=== PATIENT | female | born 1965 | race Two or more races ===

== ENCOUNTER 2024-08-19 19:46 | Inpatient (IN) | payer MEDICAID, OTHER ==
[~2024-08-19] VITALS: Ht 149.9 cm; Wt 59.8 kg
--- NOTE | 2024-08-19 20:44 | ED.PDOC ---
HPI Comments HPI: Poor Historian. 59 y.o female presents to the ED for a chief complaint of midsternal chest pain that started 3 days ago. Patient report pain is intermittent, sharp, and is associated with occasional headaches and dizziness. Patient reports she took all her medications today and is complaint with taking them daily. Patient denies any other symptoms or pain. VITALS: Temp: 98.5 F BP: 114/74 HR: 67 RR: 18 SPO2: 96% RA Past medical history: CHF, hyperlipidemia, PreDM, HTN Past surgical history: Denies Patient denies any allergies. REVIEW OF SYSTEMS: CONSTITUTIONAL: Denies acute: fever, diaphoresis, chills, generalized weakness. HEAD: Denies acute: photophobia Eyes: Denies acute: Double vision, vision loss, eye pain, eye discharge. EARS: Denies acute: tinnitus, hearing loss, ear discharge, ear pain, THROAT: Denies acute: sore throat, swelling, difficulty swallowing , pain with swallowing, change in voice. NECK: Denies acute: neck pain, neck swelling, stiff neck. HEART: Denies acute : palpitations, LUNGS: Denies acute: SOB, wheezing, cough, hemoptysis ABDOMEN: Denies acute: abdominal pain, Nausea, Vomiting, diarrhea, melena , hematemesis, hematochezia SKIN: Denies acute: rash, redness, lesions, itchiness. EXTREMITIES: Denies acute: calf pain, numbness, tingling, weakness, denies pain in extremity. Denies acute: Low back pain. Neuro: Denies acute: focal neurological deficit, motor or sensory focal neurological deficit, tremors, seizure like activity, confusion, change in mental status, loss of bowel or bladder function, cauda equina like symptoms. : Denies acute: dysuria, hematuria, flank pain, increase in urinary frequency. PSYCH: Denies acute: hallucination, suicidal ideation, homicidal ideation. FEMALE: Denies acute: abnormal vaginal bleeding, foul odor, unusual discharge. PHYSICAL EXAM: General: no acute distress, awake and alert. Head: normocephalic, atraumatic. Neck: supple, trachea is midline, no swelling. Throat: Normal phonation. Eyes:, no erythema, no purulent discharge, no proptosis, no icterus. Heart: regular rate, regular rhythm, no significant murmur appreciated. Lungs: no apparent respiratory distress, Able to speak in full sentences. No wheezing, no rhonchi, no crackles. No stridors Clear to auscultation bilaterally. Abdomen: non tender to palpation, non distended, soft, no guarding, no rebound, + bowel sounds. Neuro: Awake, Alert, oriented to name, self, situation, follows commands GCS=15. Speech is normal. Skin: no petechia, no purpura, no cyanosis, non-pale, not jaundice. Lower extremities: --no - Pitting edema no deformity, no focal swelling, no calf TTP. Makes eye contact. moves all four extremities. Face: no apparent facial droop. Ambulating in the ED independently. ED COURSE: Chief Complaint: Chest Pain Time Seen by MD: 19:55 Reviewed Notes: Nurses Notes, Medications, Allergies Allergies: Coded Allergies: NO KNOWN ALLERGIES (Unverified , 08/19/24) Home Meds Reported Medications Spironolactone (Spironolactone) 25 Mg Tab, 1 DAILY 08/20/24 Rosuvastatin Calcium (Rosuvastatin Calcium) 40 Mg Tab, 1 DAILY 08/20/24 Carvedilol (Carvedilol) 12.5 Mg Tab, 1 TAB PO 08/20/24 Empagliflozin (Jardiance) 10 Mg Tab, 1 DAILY 08/20/24 Sacubitril-Valsartan (Entresto 24-26 mg) 1 Tab Tab, 1 TAB PO 08/20/24 Information Source: Patient Mode of Arrival: Ambulatory Past Medical History PAST MEDICAL HISTORY: CHF, DM (pre ), High Lipids, HTN Surgical History: Denies all surgeries OIL INSPECTOR History: No Pertinent OIL INSPECTOR History Family History Family History: Reviewed,noncontributory to illness Social History Smoker: Non-Smoker Alcohol: Denies ETOH Use Drugs: Denies Drug Use Lives In: Home Was a procedure done? Was a procedure done?: No CP Differential Dx Differential Diagnosis: N/A Differential Diagnosis: Angina, Aortic dissection, Chest Wall Pain, Cholelithiasis, Costochondritis, Myocardial Infarction, Pericarditis, Pneumonia, Other (Ddx include but not limitied to gastritis, musculoskeletal pain, radiculopathy, atypical chest pain, dissection, aneurysm, ACS, unstable angina, hiatal hernia, GERD, anxiety, costochondritis, PE, pneumothroax, neoplasm, cardiac ischemia, drug abuse, anemia.) X-Ray, Labs, Meds, VS Vital Signs Date Time Temp Pulse Resp B/P (MAP) Pulse Ox O2 Delivery O2 Flow Rate FiO2 08/19/24 23:03 57 08/19/24 20:55 63 08/19/24 19:57 66 08/19/24 19:50 98.5 67 18 114/74 (87) 96 Lab Test 08/19/24 23:38 08/19/24 21:26 08/19/24 19:58 Range/Units Troponin I High Sensitivity < 3 L < 3 L </=34 ng/L White Blood Count 5.2 4.4-10.8 10^3/uL Red Blood Count 4.62 4.0-5.20 10^6/uL Hemoglobin 14.3 12.2-16.2 g/dL Hematocrit 42.6 36.0-46.0 % Mean Corpuscular Volume 92.2 80.0-100.0 fL Mean Corpuscular Hemoglobin 30.8 28.0-32.0 pg Mean Corpuscular Hemoglobin Concent 33.4 32.0-36.0 g/dL Red Cell Distribution Width 13.2 11.8-14.3 % Platelet Count 198 140-450 10^3/uL Mean Platelet Volume 8.8 6.9-10.8 fL Neutrophils (%) (Auto) 37.0-80.0 % Lymphocytes (%) (Auto) 10.0-50.0 % Monocytes (%) (Auto) 0.0-12.0 % Basophils (%) (Auto) 0.0-2.0 % Neutrophils # (Auto) 1.6-8.6 10 ^3/uL Lymphocytes # (Auto) 0.4-5.4 10 ^3/uL Monocytes # (Auto) 0-1.3 10 ^3/uL Differential Total Cells Counted 100.0 100 Neutrophils % (Manual) 25 L 37.0-80.0 Band Neutrophils % (Manual) 2 Lymphocytes % (Manual) 60 H 10.0-50.0 Monocytes % (Manual) 6 0-12 Eosinophils % (Manual) 1 0-7 Basophils % (Manual) 0 0.0-2.0 Metamyelocytes % (manual) 0 Myelocytes % (Manual) 0 Promyelocytes % (Manual) 0 Blast Cells % (Manual) 0 Reactive Lymphocytes 6 Platelet Estimate Adequate Sodium Level 138 136-145 mmol/L Potassium Level 4.2 3.5-5.1 mmol/L Chloride Level 105 98-107 mmol/L Carbon Dioxide Level 25 20-31 mmol/L Anion Gap 8 5-15 Blood Urea Nitrogen 19 9-23 mg/dL Creatinine 0.80 0.550-1.02 mg/dL Glomerular Filtration Rate Calc 84 >90 mL/min BUN/Creatinine Ratio 23.8 H 10.0-20.0 Serum Glucose 99 74-106 mg/dL Lactic Acid Level 0.8 0.4-2.0 mmol/L Calcium Level 10.6 H 8.7-10.4 mg/dL Total Bilirubin 0.5 0.2-1.0 mg/dL Aspartate Amino Transferase (AST) 17 13-40 U/L Alanine Aminotransferase (ALT) 20 7-40 U/L Alkaline Phosphatase 68 46-116 U/L B-Type Natriuretic Peptide 26.29 0-100 pg/mL Total Protein 7.9 5.7-8.2 g/dL Albumin 5.0 H 3.2-4.8 g/dL Lipase 52 12-53 U/L Urine Color Colorless Yellow Urine Clarity Clear Clear Urine pH 5.5 5.0-9.0 Urine Specific [place] 1.013 1.001-1.035 Urine Protein Negative Negative Urine Ketones Negative Negative Urine Blood Negative Negative /uL Urine Nitrite Negative Negative Urine Bilirubin Negative Negative Urine Urobilinogen Normal Negative mg/dL Urine Leukocyte Esterase Negative Negative /uL Urine RBC 1 0 - 4 /hpf Urine Microscopic WBC 1 0-5 /HPF Urine Squamous Epithelial Cells Few <5 /hpf Urine Bacteria None seen None Seen /hpf Urine Glucose 4+ H Normal mg/dL [address] [address] Ph: [phone] DIAGNOSTIC IMAGING Diagnostic Imaging Report : [id number] Signed PATIENT: MONA CASTROACCT: [id number] UNIT: [id number] : 1965 LOC: ER ROOM / BED: / AGE / SEX: 59 / F ADM STATUS: REG ER SERVICE 16 ORDERING PHYSICIAN: ALDEN QUINTANA DO PROCEDURE(s): CXRP - CHEST PORTABLE REASON: cp ORDER NUMBER(s): [id number], ACCESSION NUMBER(s): [id number] CHEST RADIOGRAPH Indication: cp Technique: Single frontal view of the chest was obtained Comparison: None FINDINGS: There are slightly prominent peripheral markings. Lungs are well expanded heart size is normal trachea is midline. No infiltrates or effusions 1. IMPRESSION: 1. Slightly prominent peripheral markings. If more imaging is required I would recommend CT exam ATED BY: AUGUSTINE PEÑA MD DICTATED DATE/TIME: 08/19/242056 SIGNED BY: AUGUSTINE PEÑA MD SIGNED DATE/TIME: 08/19/242056 CC: [id number] Ph: [phone] DIAGNOSTIC IMAGING Diagnostic Imaging Report : [id number] Signed PATIENT: MONA CASTRO ACCT: [id number] UNIT: [id number] : 1965 LOC: ER ROOM / BED: / AGE / SEX: 59 / F ADM STATUS: REG ER SERVICE ORDERING PHYSICIAN: MISTY MONTGOMERY PROCEDURE(s): HWOCT - HEAD WITHOUT CONTRAST REASON: headache ORDER NUMBER(s): [id number], ACCESSION NUMBER(s): [id number] CT HEAD WITHOUT CONTRAST INDICATION: headache COMPARISON: None TECHNIQUE: CT of the head without intravenous contrast. RADIATION DOSE: CTDIvol: 49.51 mGy, DLP: 892.82 mGy*cm FINDINGS: There is no evidence of e intracranial hemorrhage, infarct, extra-axial collection, mass effect, midline shift, herniation or hydrocephalus. The ventricles, sulci and cisterns are normal. The gentile-white differentiation is normal. Visualized paranasal sinuses and mastoid air cells are clear. Soft tissues and osseous structures are unremarkable. IMPRESSION: No intracranial abnormality identified. ATED BY: LUCIANO LEONARD MD DICTATED DATE/TIME: 08/20/2446 SIGNED BY: LUCIANO LEONARD MD SIGNED DATE/TIME: 08/20/2446 CC: Time of 1ST Reevaluation: 20:41 Reevaluation 1ST: Unchanged Patient Education/Counseling: Diagnosis, Treatment Family Education/Counseling: No Family Present Comments Patient presented with the above HPI.---cardiac---workup was initiated. patient was found with the above mentioned diagnosis. the following medications were ordered: please refer to order lists of meds and tests obtained by myself Dr. Quintana. Patient ED course and VS have been stabilized. Patient has been reassessed in the ED and remained in a stable condition. Pertinent incidental findings were discussed with the patient and/or family. Patient/family voices understanding and is agreeable with plan. Patient has been observed in the ED adequate length of time to insure improvement/stability. Escalation of care considered: Consideration of escalation to observation or admission Patient was ADMITTED to the medicine team for further evaluation and treatment of their presentation. All the reports of any imaging studies that were ordered by myself were reviewed by myself. Departure 1 Departure Time of Disposition: 23:20 Impression: Primary Impression: Chest pain Disposition: ADMITTED INPATIENT Admit to: [facility] Condition: Guarded Discharged With: Self Critical Care Note Critical Care Time?: No Heart Score Heart Score: Heart Score Response (Comments) Value History Slightly Suspicious 0 EKG Normal 0 Age 45-64 1 Risk Factors >3 or Hx ASHD 2 Troponin Normal limit 0 Total 3 I personally scribed for ALDEN QUINTANA DO ([email or web address]) on 08/19/24 at 20:44. Electronically submitted by Kelsey Sanchez ([email or web address]). I personally scribed for ALDEN QUINTANA DO ([email or web address]) on 08/19/24 at 22:05. Electronically submitted by Kelsey Sanchez ([email or web address]). I personally scribed for ALDEN QUINTANA DO ([email or web address]) on 08/20/24 at 01:03. Electronically submitted by Tino Rosa ([email or web address]). ALDEN QUINTANA DO Aug 19, 2024 20:44
--- NOTE | 2024-08-19 20:59 | DVH ---
CHEST RADIOGRAPH Indication: cp Technique: Single frontal view of the chest was obtained Comparison: None FINDINGS: There are slightly prominent peripheral markings. Lungs are well expanded heart size is normal trach ea is midline. No infiltrates or effusions 1. IMPRESSION: 1. Slightly prominent peripheral markings. If more imaging is required I would recommend CT exam
[2024-08-19 21:40] LABS: Urine Bacteria None Seen /hpf (None Seen)
[2024-08-19 21:47] LABS: Hematocrit 42.6 % (36.0-46.0); Hemoglobin 14.3 g/dL (12.2-16.2); Mean Corpuscular Hemoglobin 30.8 pg (28.0-32.0); Mean Corpuscular Hgb Conc. 33.4 g/dL (32.0-36.0); Mean Corpuscular Volume 92.2 fL (80.0-100.0); Platelet Count (auto) 198 10^3/uL (140-450); Red Blood Cells 4.62 10^6/uL (4.0-5.20); Red Cell Distribution Width 13.2 % (11.8-14.3); White Blood Cell 5.2 10^3/uL (4.4-10.8)
[2024-08-19 21:50] LABS: Basophils % (manual) 0 (0.0-2.0); Blast Cells 0; Metamyelocytes % 0; Myelocytes % 0; Promyelocytes % 0
[2024-08-19 21:52] LABS: Urine Blood Negative /uL (Negative); Urine Clarity Clear (Clear); Urine Color Colorless (Yellow); Urine Protein, UAD Negative (Negative); Urine Specific Gravity 1.013 (1.001-1.035); Urine Squamous Epithelial Cell FEW /hpf (<5); Urine Urobilinogen Normal (Negative); Urine WBC 1 /HPF (0-5); Urine pH 5.5 (5.0-9.0)
[2024-08-19 22:01] LABS: Alanine Aminotransferase 20 U/L (7-40); Alkaline Phosphatase 68 U/L (46-116)
[2024-08-19 22:02] LABS: Anion Gap 8 (5-15); Aspartate Aminotransferase 17 U/L (13-40); BUN/Creatinine Ratio 23.8 (10.0-20.0); Bilirubin, Total 0.5 mg/dL (0.2-1.0); Blood Urea Nitrogen 19 mg/dL (9-23); Carbon Dioxide 25 mmol/L (20-31); Chloride 105 mmol/L (98-107); Glucose 99 mg/dL (74-106); Potassium 4.2 mmol/L (3.5-5.1); Sodium 138 mmol/L (136-145); Total Protein 7.9 g/dL (5.7-8.2)
[2024-08-19 22:36] LABS: Calcium 10.6 mg/dL (8.7-10.4)
[2024-08-19 22:53] LABS: Lipase 52 U/L (12-53)
[2024-08-19 22:57] LABS: Band Neutrophils % (manual) 2; Eosinophils % (manual) 1 (0-7); Lymphocytes % (manual) 60 (10.0-50.0); Monocytes % (manual) 6 (0-12); Platelet Estimate Adequate; Reactive Lymphocytes 6
[2024-08-20] MEDS ORDERED: MORPHINE SULFATE INJ 2 MG/ml SYRG IV PRN
[2024-08-20] MEDS ORDERED: NITROGLYCERIN 0.4 MG SL TAB SL PRN
[2024-08-20] MEDS ORDERED: ONDANSETRON HCL 4 MG/2 ML VIAL IV PRN (00:15)
[2024-08-20 00:29] VITALS: RESP 18; O2SAT 98
--- NOTE | 2024-08-20 00:31 | DVHHP2 ---
History of Present Illness Reason for Visit: Chest pain History of Present Illness 59-year-old female presents for evaluation of chest pain. Patient reports a three day history of left-sided intermittent sharp chest pain that is nonradiating. She also associates having dizziness and headache. No blurred vision or unilateral weakness. No shortness a breath or nausea. No other acute complaints reported. Past Medical History Hypertension, dyslipidemia and CHF Past Surgical History Denies Family History Noncontributory Smoke: No ALCOHOL: none Drugs: None Lives: with Family Review of Systems Review of Systems Review of systems are currently negative otherwise dressing HPI. Allergies: Coded Allergies: NO KNOWN ALLERGIES (Unverified , 08/19/24) Medications Current Medications Medications Dose Ordered Sig/Mimi Route Start Time Stop Time Status Last Admin Dose Admin Nitroglycerin 0.4 mg Q5MINP PRN SL 08/20/24 00:00 Morphine Sulfate 2 mg Q30M PRN IV 08/20/24 00:00 Sacubitril/ Valsartan 1 tab BID PO 08/20/24 10:00 Empaglifozin 10 mg DAILY PO 08/20/24 10:00 Carvedilol 12.5 mg Q12HR PO 08/20/24 10:00 Atorvastatin Calcium 40 mg HS PO 08/20/24 22:00 Ondansetron HCl 4 mg Q4HP PRN IV 08/20/24 00:15 Acetaminophen 650 mg Q6HP PRN PO 08/20/24 00:15 Exam Vital Signs Vital Signs Date Time Temp Pulse Resp B/P (MAP) Pulse Ox O2 Delivery O2 Flow Rate FiO2 08/19/24 20:55 63 08/19/24 19:50 98.5 18 114/74 (87) 96 Exam Gen: 59-year-old female in no apparent distress. Skin: Warm, dry, normal color and texture, no rash. HEENT: Normocephalic atraumatic, mucous membranes moist and pink. Neck: Cervical and supraclavicular nodes normal without enlargement, trachea is midline, thyroid gland is normal without masses. Pulmonary: Clear to auscultation and percussion bilaterally. Cardiac: Regular rate and rhythm. No murmur Abdomen: Soft, nontender, nondistended, bowel sounds present all 4 quadrants, no guarding, no rigidity, no organomegaly. Extremities: No cyanosis, clubbing, no edema Neuro: Cranial nerves II through XII grossly intact, normal affect and speech, no focal motor deficits. Labs/Xrays ORDERING PHYSICIAN: ALDEN QUINTANA DO PROCEDURE(s): CXRP - CHEST PORTABLE REASON: cp ORDER NUMBER(s): [id number], ACCESSION NUMBER(s): [id number] CHEST RADIOGRAPH Indication: cp Technique: Single frontal view of the chest was obtained Comparison: None FINDINGS: There are slightly prominent peripheral markings. Lungs are well expanded heart size is normal trachea is midline. No infiltrates or effusions 1. IMPRESSION: 1. Slightly prominent peripheral markings. If more imaging is required I would recommend CT exam Labs Test 08/19/24 23:38 08/19/24 21:26 08/19/24 19:58 Range/Units Troponin I High Sensitivity < 3 L </=34 ng/L White Blood Count 5.2 4.4-10.8 10^3/uL Red Blood Count 4.62 4.0-5.20 10^6/uL Hemoglobin 14.3 12.2-16.2 g/dL Hematocrit 42.6 36.0-46.0 % Mean Corpuscular Volume 92.2 80.0-100.0 fL Mean Corpuscular Hemoglobin 30.8 28.0-32.0 pg Mean Corpuscular Hemoglobin Concent 33.4 32.0-36.0 g/dL Red Cell Distribution Width 13.2 11.8-14.3 % Platelet Count 198 140-450 10^3/uL Mean Platelet Volume 8.8 6.9-10.8 fL Neutrophils (%) (Auto) 37.0-80.0 % Lymphocytes (%) (Auto) 10.0-50.0 % Monocytes (%) (Auto) 0.0-12.0 % Basophils (%) (Auto) 0.0-2.0 % Neutrophils # (Auto) 1.6-8.6 10 ^3/uL Lymphocytes # (Auto) 0.4-5.4 10 ^3/uL Monocytes # (Auto) 0-1.3 10 ^3/uL Differential Total Cells Counted 100.0 100 Neutrophils % (Manual) 25 L 37.0-80.0 Band Neutrophils % (Manual) 2 Lymphocytes % (Manual) 60 H 10.0-50.0 Monocytes % (Manual) 6 0-12 Eosinophils % (Manual) 1 0-7 Basophils % (Manual) 0 0.0-2.0 Metamyelocytes % (manual) 0 Myelocytes % (Manual) 0 Promyelocytes % (Manual) 0 Blast Cells % (Manual) 0 Reactive Lymphocytes 6 Platelet Estimate Adequate Lactic Acid Level 0.8 0.4-2.0 mmol/L Total Bilirubin 0.5 0.2-1.0 mg/dL Aspartate Amino Transferase (AST) 17 13-40 U/L Alanine Aminotransferase (ALT) 20 7-40 U/L Alkaline Phosphatase 68 46-116 U/L B-Type Natriuretic Peptide 26.29 0-100 pg/mL Total Protein 7.9 5.7-8.2 g/dL Albumin 5.0 H 3.2-4.8 g/dL Lipase 52 12-53 U/L Urine Color Colorless Yellow Urine Clarity Clear Clear Urine pH 5.5 5.0-9.0 Urine Specific [place] 1.013 1.001-1.035 Urine Protein Negative Negative Urine Ketones Negative Negative Urine Blood Negative Negative /uL Urine Nitrite Negative Negative Urine Bilirubin Negative Negative Urine Urobilinogen Normal Negative mg/dL Urine Leukocyte Esterase Negative Negative /uL Urine RBC 1 0 - 4 /hpf Urine Microscopic WBC 1 0-5 /HPF Urine Squamous Epithelial Cells Few <5 /hpf Urine Bacteria None seen None Seen /hpf Urine Glucose 4+ H Normal mg/dL Assessment/Plan Assessment/Plan Assessment Unstable angina Hypertension Dyslipidemia Plan Admit the patient to telemetry to the hospitalist Cardiology consultation Echocardiogram pending Head CT pending Resume home medications Continue treatment per orders. Plan discussed with: Patient My Orders Orders - MISTY MONTGOMERY AGACNP Procedure Category Date Status Time Admit ADMIT 08/19/24 Transmitted 23:59 Nitroglycerin PHA 08/20/24 In Process Sublingual (Ntrostat 00:00 Morphine Sulfate PHA 08/20/24 In Process Injection 00:00 Stat Ekg For Chest ALEJANDRA 08/19/24 In Process Pain 23:59 Notify Of Changes ALEJANDRA 08/19/24 In Process From Base 23:59 Disbursing Agent For ALEJANDRA 08/19/24 In Process 24 Hours 23:59 Emergency Dysrhythmia ALEJANDRA 08/19/24 In Process Protocol 23:59 Rhythm Strips Once ALEJANDRA 08/19/24 In Process Every Shift 23:59 Oxygen By Nasal RT 08/19/24 Transmitted Cannula 23:59 Basic Metabolic Panel LAB 08/20/24 In Process 00:[address] 08/20/24 Logged 00:06 Sacubitril-Valsartan PHA 08/20/24 In Process (Entresto 24-26 Mg 10:00 Empagliflozin PHA 08/20/24 In Process (Jardiance) 10:00 Carvedilol Tablet PHA 08/20/24 In Process (Coreg Tablet) 10:00 Atorvastatin (Lipitor) PHA 08/20/24 In Process 22:00 * Cardiology Consult CONS 08/20/24 Transmitted 00:06 Ondansetron Hcl PHA 08/20/24 In Process (Zofran) 00:15 Cardiac DIET 08/20/24 Transmitted Diet-2gna,Lofat,Lochol Breakfast Echo 2d Mode Cardiac US 08/20/24 Logged DOP 00:06 Condition: Stable ALEJANDRA 08/20/24 In Process 00:06 Acetaminophen Tablet PHA 08/20/24 In Process (Tylenol Tablet) 00:15 Bedrest With Bathroom ALEJANDRA 08/20/24 In Process Privileg 00:06 Date of Service: Aug 19, 2024 Billing Provider: MISTY MONTGOMERY Common Visit Codes: [id number] INP/OBS CARE (HIGH) MISTY MONTGOMERY Aug 20, 2024 00:31
--- NOTE | 2024-08-20 00:49 | DVH ---
CT HEAD WITHOUT CONTRAST INDICATION: headache COMPARISON: None TECHNIQUE: CT of the head without intravenous contrast. RADIATION DOSE: CTDIvol: 49.51 mGy, DLP: 892.82 mGy*cm FINDINGS: There is no evidence of e intracranial hemorrhage, infarct, extra-axial collection, mass effect, midl ine shift, herniation or hydrocephalus. The ventricles, sulci and cisterns are normal. The gentile-white differentiation is normal. Visualized paranasal sinuses and mastoid air cells are clear. Soft tissue s and osseous structures are unremarkable. IMPRESSION: No intracranial abnormality identified.
[2024-08-20 00:59] VITALS: BP 110/70; PULSE 58; PULSE 63; RESP 16; TEMP 97.7; O2SAT 98
[2024-08-20 01:00] VITALS: BP 110/70; PULSE 58; RESP 18; TEMP 97.7; O2SAT 98
[2024-08-20 01:04] LABS: Anion Gap 11 (5-15); Carbon Dioxide 22 mmol/L (20-31); Chloride 106 mmol/L (98-107); Potassium 4.2 mmol/L (3.5-5.1); Sodium 139 mmol/L (136-145)
[2024-08-20 01:10] LABS: BUN/Creatinine Ratio 37.1 (10.0-20.0); Glucose 103 mg/dL (74-106)
[2024-08-20 01:18] LABS: Blood Urea Nitrogen 26 mg/dL (9-23)
--- NOTE | 2024-08-20 01:43 | ECG ---
[facility] Test Date: 2024-08-19 Test Time: 23:03:46 Pat Name: MONA MEDINA Department: ER Room: [address] [place] [address] Gender: F Specialist Field Engineer: ER : 1965 Requested By: ALDEN QUINTANA Order Number: [id number] Reading MD: Measurements Intervals [place] Rate: 57 P: 71 MA: 144 QRS: 61 QRSD: 139 T: 38 QT: 455 QTc: 443 Interpretive Statements Sinus rhythm IVCD, consider atypical LBBB Please click the below link to view image of tracing.
--- NOTE | 2024-08-20 01:43 | ECG ---
[facility] Test Date: 2024-08-19 Test Time: 19:57:33 Pat Name: MONA MEDINA Department: ER Room: [address] [place] [address] Gender: F Electrical Plumbing Supervisor: ARISTEO : 1965 Requested By: ALDEN QUINTANA Order Number: [id number] Reading MD: Measurements Intervals [place] Rate: 66 P: 48 HI: 159 QRS: 16 QRSD: 138 T: 52 QT: 437 QTc: 458 Interpretive Statements Sinus rhythm Left bundle branch block Please click the below link to view image of tracing.
--- NOTE | 2024-08-20 01:43 | ECG ---
[facility] Test Date: 2024-08-19 Test Time: 20:55:11 Pat Name: MONA MEDINA Department: ER Room: [address] [place] [address] Gender: F Training And Development Rep: ER : 1965 Requested By: ALDEN QUINTANA Order Number: [id number] Reading MD: Measurements Intervals [place] Rate: 63 P: 45 TX: 175 QRS: 11 QRSD: 144 T: 48 QT: 444 QTc: 455 Interpretive Statements Sinus rhythm Left bundle branch block Please click the below link to view image of tracing.
[2024-08-20] MEDS ORDERED: CARV12.544 PO (02:07)
[2024-08-20] MEDS ORDERED: ROSU40TA47 (02:07)
[2024-08-20] MEDS ORDERED: SACU1TAB PO (02:07)
[2024-08-20] MEDS ORDERED: EMPA1TAB (02:07)
[2024-08-20] MEDS ORDERED: SPIR25TA8 (02:07)
[2024-08-20 05:00] VITALS: BP 93/61; PULSE 64; RESP 16; TEMP 97.8; O2SAT 95
[2024-08-20] MEDS: ACETAMINOPHEN 325 MG TAB PO PRN (06:59)
[2024-08-20 08:01] VITALS: BP 86/59; PULSE 70; RESP 18; TEMP 99.7; O2SAT 96
--- NOTE | 2024-08-20 09:38 | DVHINCON2 ---
CHERRIE CHACKO [facility] 08/20/24 0938: Date Seen: Aug 20, 2024 Referring Physician IONA Richardson Reason for Consultation Chest pain History of Present Illness This is a [place]-speaking mostly 59-year-old female who presented to the emergency room with a chief complaint of headache for three days. The patient complains of an intermittent headache associated with eye burning sensation, left ear pain, dizziness, and chest pain described as left-sided, nonradiating, non provoked, and sharp in nature. Serial troponin levels are negative. She underwent multiple 12 lead electrocardiogram revealing a sinus rhythm with an associated left bundle branch block. Follows up with a primary nanny babysitter in [place] undergoing a recent transthoracic echocardiogram where she was notified of an LVEF of 40% and placed on HF medications. Reports undergoing a cardiac catheterization without catheter based intervention given no CAD at [facility] on 2023. Significant past medical history includes congestive heart failure, hypertension, prediabetes, psoriatic arthritis, inactive tuberculosis treated last year, and history of H pylori. Past Medical History Past medical history reviewed. No other significant than mentioned above. Past Surgical History Left upper extremity Family History: Patient reports no known family medical history. Family History Family history reviewed. Social History Denies the use of illicit drugs, alcohol, or tobacco use. Allergies: Coded Allergies: NO KNOWN ALLERGIES (Unverified , 08/19/24) Home Meds Reported Medications Spironolactone (Spironolactone) 25 Mg Tab, 1 DAILY 08/20/24 Rosuvastatin Calcium (Rosuvastatin Calcium) 40 Mg Tab, 1 DAILY 08/20/24 Carvedilol (Carvedilol) 12.5 Mg Tab, 1 TAB PO 08/20/24 Empagliflozin (Jardiance) 10 Mg Tab, 1 DAILY 08/20/24 Sacubitril-Valsartan (Entresto 24-26 mg) 1 Tab Tab, 1 TAB PO 08/20/24 Home Meds Home medications reviewed. Current Medications Current Medications Medications (Trade) Dose Ordered Sig/Mimi Route PRN Reason Start Time Stop Time Status Last Admin Nitroglycerin (Ntrostat Sublingual) 0.4 mg Q5MINP PRN SL FOR CHEST PAIN 08/20/24 00:00 Morphine Sulfate 2 mg Q30M PRN IV FOR CHEST PAIN 08/20/24 00:00 Sacubitril/ Valsartan (Entresto 24-26 Mg tab) 1 tab BID PO 08/20/24 10:00 08/20/24 09:04 DC Empaglifozin (Jardiance) 10 mg DAILY PO 08/20/24 10:00 Carvedilol (Coreg Tablet) 12.5 mg Q12HR PO 08/20/24 10:00 Atorvastatin Calcium (Lipitor) 40 mg HS PO 08/20/24 22:00 Ondansetron HCl (Zofran) 4 mg Q4HP PRN IV NAUSEA / VOMITING 08/20/24 00:15 Acetaminophen (Tylenol Tablet) 650 mg Q6HP PRN PO PAIN SCALE 1-3 OR TEMP>100.4 08/20/24 00:15 08/20/24 06:59 Review of Systems Constitutional: No symptom reported Ears, Nose, & Throat: Ear pain Eyes: Eye burning sensation Neurological: Dizziness Pulmonary/Respiratory: No symptom reported Cardiovascular: No symptom reported Gastrointestinal: No symptom reported Genitourinary: No symptom reported Musculoskeletal: Noncardiac chest pain Skin: No symptom reported Psychiatric: No symptom reported Endocrine: No symptom reported Hemotologic/Lymphatic: No symptom reported Vital Signs Vital Signs Date Time Temp Pulse Resp B/P (MAP) Pulse Ox O2 Delivery O2 Flow Rate FiO2 08/20/24 08:01 99.7 70 18 86/59 (68) 96 99.7 08/20/24 00:59 Room Air* 0 21 Physical Exam General Appearance: Cooperative. Well developed. Well nourished. In no acute distress Head Exam: Normal inspection Neck Exam: Normal inspection. Non-tender. Normal alignment Pulmonary/Respiratory: Chest non-tender. Clear bilateral breath sounds Cardiovascular/Chest: Regular rate and rhythm. S1, S2. Sinus rhythm with a associated LBBB. No murmurs. No JVD. Peripheral Pulses: 2+ Radial (R). 2+ Radial (L). 2+ Pedal (R). 2+ Pedal (L) Abdominal Exam: Normal bowel sounds. Soft. Nontender. No hepatospenomegaly. No masses Ankle Exam: Negative ankle edema Lower extremities: Negative lower extremity edema Neuro/Mental Status: A&O x4. Coherent Thoughts/Psych: Normal thought pattern. Appropriate mood and affect. Good judgement and insight Appearance: In no acute distress Skin Exam: Normal inspection. Normal color. Warm. Dry Labs/Diagnostic Data Labs Test 08/20/24 08:28 08/20/24 00:40 08/19/24 21:26 08/19/24 19:58 Range/Units D-Dimer, Quantitative < 0.19 0.0-0.49 mg/L FEU Thyroid Stimulating Hormone (TSH) 3.63 0.55-4.78 uIU/mL Troponin I High Sensitivity < 3 L </=34 ng/L Differential Total Cells Counted 100.0 100 Neutrophils % (Manual) 25 L 37.0-80.0 Band Neutrophils % (Manual) 2 Lymphocytes % (Manual) 60 H 10.0-50.0 Monocytes % (Manual) 6 0-12 Eosinophils % (Manual) 1 0-7 Basophils % (Manual) 0 0.0-2.0 Metamyelocytes % (manual) 0 Myelocytes % (Manual) 0 Promyelocytes % (Manual) 0 Blast Cells % (Manual) 0 Reactive Lymphocytes 6 Platelet Estimate Adequate Lactic Acid Level 0.8 0.4-2.0 mmol/L Total Bilirubin 0.5 0.2-1.0 mg/dL Aspartate Amino Transferase (AST) 17 13-40 U/L Alanine Aminotransferase (ALT) 20 7-40 U/L Alkaline Phosphatase 68 46-116 U/L B-Type Natriuretic Peptide 26.29 0-100 pg/mL Total Protein 7.9 5.7-8.2 g/dL Albumin 5.0 H 3.2-4.8 g/dL Lipase 52 12-53 U/L Urine Color Colorless Yellow Urine Clarity Clear Clear Urine pH 5.5 5.0-9.0 Urine Specific [place] 1.013 1.001-1.035 Urine Protein Negative Negative Urine Ketones Negative Negative Urine Blood Negative Negative /uL Urine Nitrite Negative Negative Urine Bilirubin Negative Negative Urine Urobilinogen Normal Negative mg/dL Urine Leukocyte Esterase Negative Negative /uL Urine RBC 1 0 - 4 /hpf Urine Microscopic WBC 1 0-5 /HPF Urine Squamous Epithelial Cells Few <5 /hpf Urine Bacteria None seen None Seen /hpf Urine Glucose 4+ H Normal mg/dL Assessment Noncardiac chest pain, pleuritic in nature Chronic compensated HFrEF Hypertension Prediabetes Psoriatic arthritis Recently treated inactive TB Rule out acute respiratory processes Plan/Recommendation (Dr. Kwok) Case discussed in detail and patient evaluated by Dr. Kwok. The patient presents with noncardiac chest pain and chronic compensated HFrEF. Continue judicious GDMT for CHF, monitor BP closely. Obtain a transthoracic echocardiogram to further delineate cardiac function. In the setting of no imp rovement of LVEF with three months of GDMT for CHF, she may be a candidate for an AICD. Follow-up with primary nanny babysitter as scheduled. Thank you for allowing us to participate in this patient's care. Please call if you have any questions or concerns. This medical document was created using an electronic medical record system with voice recognition software and computerized dictation system. Although this document has been carefully reviewed, there might still be some phonetic and typographical errors. Occasional wrong-word or ``sound-alike substitutions may have occurred due to the inherent limitations of voice recognition software. These areas are purely typographical due to imperfections of the software programs and do not reflect any compromise in the patient's medical care. Please read the chart carefully and recognize, using context, where these substitutions have occurred. Plan discussed with: Patient, Other NYHA Physical activity limitations: NA Date of Service: Aug 20, 2024 Billing Provider: CHERRIE CHACKO [facility] Cardiology Common Codes: 47252-[id number] INP/OBS CARE (High) MANOJ KWOK MD 08/20/24 1257: Date Seen: Aug 20, 2024 Family History: Patient reports no known family medical history. Allergies: Coded Allergies: NO KNOWN ALLERGIES (Unverified , 08/19/24) Home Meds Reported Medications Spironolactone (Spironolactone) 25 Mg Tab, 1 DAILY 08/20/24 Rosuvastatin Calcium (Rosuvastatin Calcium) 40 Mg Tab, 1 DAILY 08/20/24 Carvedilol (Carvedilol) 12.5 Mg Tab, 1 TAB PO 08/20/24 Empagliflozin (Jardiance) 10 Mg Tab, 1 DAILY 08/20/24 Sacubitril-Valsartan (Entresto 24-26 mg) 1 Tab Tab, 1 TAB PO 08/20/24 Plan/Recommendation 59-year-old female with a past medical history of left bundle-branch block reported nonischemic cardiomyopathy, reported angiogram in 2023 that was unremarkable. Her chest pain actually is described as a pounding and more related to a palpitation rather than chest pain or pressure. Her systolic blood pressure ranges in the 90 to low 100s. She does not have any lightheadedness or syncope. She is compliant with her medications. She reports being frustrated with her outpatient nanny babysitter due to being rescheduled several times. Serial troponin testing was negative, lipid panel unavailable, BNP 26. EKG with sinus rhythm left bundle-branch block, heart rate 66 Patient does not appear to be in any acute cardiac condition. Her main symptom is her headache which is being worked up by the primary team. I have provided her with my office information and would be glad to follow her care as outpatient. We will request records from previous offices. Her functional status appears very reasonable, likely NYHA 1-2. Considering this she would not be a candidate for cardiac resynchronization therapy or defibrillator, especially if her ejection fraction is not 30% or less. Recommend switching carvedilol to Toprol-XL 50 mg daily. Complete echocardiogram and outpatient follow up. Thank you for this consultation. Cardiology Common Codes: [id number] INP/OBS CARE (High) CHERRIE CHACKO Aug 20, 2024 09:38 MANOJ KWOK MD Aug 20, 2024 12:57
[2024-08-20 09:48] LABS: Basophils # (auto) 0 10 ^3/uL (0-0.2); Basophils % (auto) 0.2 % (0.0-2.0); Eosinophils # (auto) 0.1 10 ^3/uL (0-0.8); Eosinophils % (auto) 1.5 % (0.0-7.0); Hematocrit 41.7 % (36.0-46.0); Hemoglobin 14.5 g/dL (12.2-16.2); Lymphocytes # (auto) 1.9 10 ^3/uL (0.4-5.4); Lymphocytes % (auto) 53.1 % (10.0-50.0); Mean Corpuscular Hemoglobin 31.5 pg (28.0-32.0); Mean Corpuscular Hgb Conc. 34.7 g/dL (32.0-36.0); Mean Corpuscular Volume 90.8 fL (80.0-100.0); Monocytes # (auto) 0.5 10 ^3/uL (0-1.3); Monocytes % (auto) 12.9 % (0.0-12.0); Neutrophils # (auto) 1.1 10 ^3/uL (1.6-8.6); Neutrophils % (auto) 32.3 % (37.0-80.0); Nucleated Red Blood Cells % 0.1 %; Platelet Count (auto) 194 10^3/uL (140-450); Red Cell Distribution Width 13.5 % (11.8-14.3); White Blood Cell 3.5 10^3/uL (4.4-10.8)
[2024-08-20] MEDS: CARVEDILOL 12.5 MG TAB PO SCH (09:53)
[2024-08-20] MEDS ORDERED: SACUBITRIL-VALSARTAN 24mg/26mg TAB PO SCH ×2 (10:00)
[2024-08-20] MEDS: CARVEDILOL 3.125 MG TAB PO SCH (10:00)
[2024-08-20] MEDS ORDERED: SPIRONOLACTONE 25 MG TAB PO SCH (10:00)
[2024-08-20 10:04] LABS: Chloride 105 mmol/L (98-107); Potassium 4.4 mmol/L (3.5-5.1); Sodium 139 mmol/L (136-145)
[2024-08-20 10:05] LABS: Anion Gap 10 (5-15); Carbon Dioxide 24 mmol/L (20-31)
[2024-08-20 10:06] LABS: Calcium 10.3 mg/dL (8.7-10.4)
[2024-08-20 10:10] LABS: BUN/Creatinine Ratio 25.9 (10.0-20.0); Blood Urea Nitrogen 21 mg/dL (9-23)
[2024-08-20 10:12] LABS: Glucose 114 mg/dL (74-106)
[2024-08-20] MEDS: EMPAGLIFLOZIN 10 MG TAB PO SCH (10:47)
[2024-08-20 11:18] LABS: Amphetamine Screen, Urine Neg (NEGATIVE); Barbiturate Scree,Urine Neg (NEGATIVE); Benzodiazephine Screen, Urine Neg (NEGATIVE); Cannabinoid Screen, Urine Neg (NEGATIVE); Cocaine Screen, Urine Neg (NEGATIVE); Opiate Scree,Urine Neg (NEGATIVE); Phencyclidine Screen, Urine Neg (NEGATIVE)
--- NOTE | 2024-08-20 11:33 | ECG ---
[facility] Test Date: 2024-08-20 Test Time: 11:15:24 Pat Name: MONA MEDINA Department: [facility] ED Patient ID: [facility]-[id number] Room: [address] [place] [address] Gender: F Cashier Ticket Selling: KELLIE : 1965 Requested By: SANTIAGO ANDERSON Order Number: [id number] Reading MD: Measurements Intervals [place] Rate: 62 P: 29 MN: 148 QRS: -8 QRSD: 141 T: 65 QT: 427 QTc: 434 Interpretive Statements Sinus rhythm Left bundle branch block Please click the below link to view image of tracing.
[2024-08-20 11:58] LABS: COVID19 ANTIGEN SOFIA FIA NEGATIVE (NEGATIVE); Rapid Influenza A Negative (Negative); Rapid Influenza B Negative (Negative)
--- NOTE | 2024-08-20 13:31 | DVHDSRES ---
Discharge Summary Date of Admission Resident Creating Document: SANTIAGO GERONIMO RESIDENT Aug 19, 2024 at 23:59 Date of Discharge: Aug 20, 2024 Admitting Diagnosis Unstable angina Labs/Diagnostic Data: Laboratory Results Test 08/20/24 10:00 08/20/24 08:28 08/20/24 00:40 08/19/24 21:26 Influenza Type A Antigen Negative (Negative) Influenza Type B Antigen Negative (Negative) SARS-CoV-2 Antigen (Rapid) Negative (NEGATIVE) White Blood Count 3.5 10^3/uL (4.4-10.8) Red Blood Count 4.60 10^6/uL (4.0-5.20) Hemoglobin 14.5 g/dL (12.2-16.2) Hematocrit 41.7 % (36.0-46.0) Mean Corpuscular Volume 90.8 fL (80.0-100.0) Mean Corpuscular Hemoglobin 31.5 pg (28.0-32.0) Mean Corpuscular Hemoglobin Concent 34.7 g/dL (32.0-36.0) Red Cell Distribution Width 13.5 % (11.8-14.3) Platelet Count 194 10^3/uL (140-450) Mean Platelet Volume 9.0 fL (6.9-10.8) Neutrophils (%) (Auto) 32.3 % (37.0-80.0) Lymphocytes (%) (Auto) 53.1 % (10.0-50.0) Monocytes (%) (Auto) 12.9 % (0.0-12.0) Eosinophils (%) (Auto) 1.5 % (0.0-7.0) Basophils (%) (Auto) 0.2 % (0.0-2.0) Neutrophils # (Auto) 1.1 10 ^3/uL (1.6-8.6) Lymphocytes # (Auto) 1.9 10 ^3/uL (0.4-5.4) Monocytes # (Auto) 0.5 10 ^3/uL (0-1.3) Eosinophils # (Auto) 0.1 10 ^3/uL (0-0.8) Basophils # (Auto) 0 10 ^3/uL (0-0.2) Nucleated Red Blood Cells 0.1 % D-Dimer, Quantitative < 0.19 mg/L FEU (0.0-0.49) Sodium Level 139 mmol/L (136-145) Potassium Level 4.4 mmol/L (3.5-5.1) Chloride Level 105 mmol/L (98-107) Carbon Dioxide Level 24 mmol/L (20-31) Anion Gap 10 (5-15) Blood Urea Nitrogen 21 mg/dL (9-23) Creatinine 0.81 mg/dL (0.550-1.02) Glomerular Filtration Rate Calc 83 mL/min (>90) BUN/Creatinine Ratio 25.9 (10.0-20.0) Serum Glucose 114 mg/dL (74-106) Calcium Level 10.3 mg/dL (8.7-10.4) Thyroid Stimulating Hormone (TSH) 3.63 uIU/mL (0.55-4.78) Troponin I High Sensitivity < 3 ng/L (</=34) Differential Total Cells Counted 100.0 (100) Neutrophils % (Manual) 25 (37.0-80.0) Band Neutrophils % (Manual) 2 Lymphocytes % (Manual) 60 (10.0-50.0) Monocytes % (Manual) 6 (0-12) Eosinophils % (Manual) 1 (0-7) Basophils % (Manual) 0 (0.0-2.0) Metamyelocytes % (manual) 0 Myelocytes % (Manual) 0 Promyelocytes % (Manual) 0 Blast Cells % (Manual) 0 Reactive Lymphocytes 6 Platelet Estimate Adequate Lactic Acid Level 0.8 mmol/L (0.4-2.0) Total Bilirubin 0.5 mg/dL (0.2-1.0) Aspartate Amino Transferase (AST) 17 U/L (13-40) Alanine Aminotransferase (ALT) 20 U/L (7-40) Alkaline Phosphatase 68 U/L (46-116) B-Type Natriuretic Peptide 26.29 pg/mL (0-100) Total Protein 7.9 g/dL (5.7-8.2) Albumin 5.0 g/dL (3.2-4.8) Lipase 52 U/L (12-53) Test 08/19/24 19:58 Urine Color Colorless (Yellow) Urine Clarity Clear (Clear) Urine pH 5.5 (5.0-9.0) Urine Specific [place] 1.013 (1.001-1.035) Urine Protein Negative (Negative) Urine Ketones Negative (Negative) Urine Blood Negative /uL (Negative) Urine Nitrite Negative (Negative) Urine Bilirubin Negative (Negative) Urine Urobilinogen Normal mg/dL (Negative) Urine Leukocyte Esterase Negative /uL (Negative) Urine RBC 1 /hpf (0 - 4) Urine Microscopic WBC 1 /HPF (0-5) Urine Squamous Epithelial Cells Few /hpf (<5) Urine Bacteria None seen /hpf (None Seen) Urine Glucose 4+ mg/dL (Normal) Urine Opiates Screen Neg (NEGATIVE) Urine Fentanyl Screen Neg (NEGATIVE) Urine Barbiturates Screen Neg (NEGATIVE) Urine Phencyclidine Screen Neg (NEGATIVE) Urine Amphetamines Screen Neg (NEGATIVE) Urine Benzodiazepines Screen Neg (NEGATIVE) Urine Cocaine Screen Neg (NEGATIVE) Urine Cannabinoids Screen Neg (NEGATIVE) Other Laboratory Tests 08/20/24 08:28 Brief Hx & Hospital Course: HPI: 59-year-old female with past medical history of heart failure reduced ejection fraction, hypertension, psoriatic arthritis, prediabetes, tuberculosis was brought to the emergency department with a chief complaint of headaches for the past 3 days before admission, she reports the pain was associated with a burning sensation and left ear pain and the chest pain was described as left-sided nonradiating intermittent no provoked and sharp in nature. Hospital course Patient underwent an EKG that showed sinus rhythm with a left bundle branch block, serial troponins were negative patient follow-up with the primary sky diver in [place] and a recent transthoracic echocardiogram were she was notified was left ventricular ejection fraction of 35-40% for which she was started on GDMT. per cardiology team patient does not appear to be in acute cardiac condition and her functional status appears reasonable likely NYHA 1 or 2 . considering this the patient will need to follow up with her sky diver and if ejection fraction dropped below 30% patient will be a candidate for cardiac resynchronization therapy or defibrillator. Disposition: Discharge to home Case discussed with Dr. Resendiz Goals of care discussed with the patient for 31 minutes Code status: Full code Operations or Procedures [address] [address] Ph: [phone] DIAGNOSTIC IMAGING Diagnostic Imaging Report : [id number] Signed PATIENT: MONA CASTROACCT: [id number] UNIT: [id number] : 1965 LOC: ER ROOM / BED: / AGE / SEX: 59 / F ADM STATUS: REG ER SERVICE 16 ORDERING PHYSICIAN: ALDEN QUINTANA DO PROCEDURE(s): CXRP - CHEST PORTABLE REASON: cp ORDER NUMBER(s): [id number], ACCESSION NUMBER(s): [id number] CHEST RADIOGRAPH Indication: cp Technique: Single frontal view of the chest was obtained Comparison: None FINDINGS: There are slightly prominent peripheral markings. Lungs are well expanded heart size is normal trachea is midline. No infiltrates or effusions 1. IMPRESSION: 1. Slightly prominent peripheral markings. If more imaging is required I would recommend CT exam ATED BY: AUGUSTINE PEÑA MD DICTATED DATE/TIME: 08/19/242056 SIGNED BY: AUGUSTINE PEÑA MD SIGNED DATE/TIME: 08/19/242056 CC: [place] [id number] Ph: [phone] DIAGNOSTIC IMAGING Diagnostic Imaging Report : [id number] Signed PATIENT: MONA CASTROACCT: [id number] UNIT: [id number] : 1965 LOC: ER ROOM / BED: / AGE / SEX: 59 / F ADM STATUS: REG ER SERVICE ORDERING PHYSICIAN: MISTY MONTGOMERY PROCEDURE(s): HWOCT - HEAD WITHOUT CONTRAST REASON: headache ORDER NUMBER(s): [id number], ACCESSION NUMBER(s): [id number] CT HEAD WITHOUT CONTRAST INDICATION: headache COMPARISON: None TECHNIQUE: CT of the head without intravenous contrast. RADIATION DOSE: CTDIvol: 49.51 mGy, DLP: 892.82 mGy*cm FINDINGS: There is no evidence of e intracranial hemorrhage, infarct, extra-axial collection, mass effect, midline shift, herniation or hydrocephalus. The ventricles, sulci and cisterns are normal. The gentile-white differentiation is normal. Visualized paranasal sinuses and mastoid air cells are clear. Soft tissues and osseous structures are unremarkable. IMPRESSION: No intracranial abnormality identified. ATED BY: LUCIANO LEONARD MD DICTATED DATE/TIME: 08/20/2446 SIGNED BY: LUCIANO LEONARD MD SIGNED DATE/TIME: 08/20/2446 CC: Condition at Discharge: Fair Final Diagnosis/Problems List Noncardiac chest pain, pleuritic in nature Chronic compensated HFrEF Prediabetes Psoriatic arthritis Recently treated inactive TB Ruled out acute respiratory processes Unstable angina ruled out Hypertension Dyslipidemia Discharge Disposition: Home SNF Discharge Will this Physician continue t: No Discharge Instruct/Medications Diet: Cardiac 2g Na,low cholest Activity: No Restrictions, As Tolerated Follow Up/Referral: Follow up with PCP within 1 to 2 weeks follow up with sky diver within 1 to 2 weeks Medications: no meds Discharge Statement: "Patient was advised to return to the ER or call 911 if any headaches, dizziness, shortness of breath, chest pain, abdominal pain, bleeding, fevers, or worsening of medical condition. Patient was counseled about treatment plan, medications, possible side effects, patientverbalized understanding. All questions were answered to the best of my ability. This discharge took greater then 30 minutes in planning, reviewing documentation, counseling the patient, and discussing with other team members." ASSESSMENT ASSESSMENT Assessment chronic compensated systolic heart failure LBBB non cardiac chest pain SANTIAGO GERONIMO RESIDENT Aug 20, 2024 13:31
[2024-08-20 14:13] VITALS: BP 93/59; PULSE 68; RESP 18; TEMP 98.3; O2SAT 94
[2024-08-20] MEDS ORDERED: ATORVASTATIN 20 MG TAB PO SCH (22:00)
== END 2024-08-20 17:00 | disposition home or self-care (01) | DRG 203 ==
LOC: ER 19:46 → OVERFLOW 23:57
PROVIDERS: ADMIT Student in an Organized Health Care Education/Training Program; ATTEND Emergency Medicine
DX: R07.89 Other chest pain (principal); I11.0 Hypertensive heart disease with heart failure; L40.59 Other psoriatic arthropathy; I50.22 Chronic systolic (congestive) heart failure; Z20.822 Contact with and (suspected) exposure to COVID-19; I44.7 Left bundle-branch block, unspecified; R73.03 Prediabetes; E78.5 Hyperlipidemia, unspecified; H92.02 Otalgia, left ear
CPT/HCPCS: 36415; 70450; 71045; 80048; 80053; 80307; 81001; 83605; 83690; 83880; 84443; 84484; 85007; 85025; 85027; 85379; 87426; 87804; 93005; 93306; G0378